=== PATIENT | female | born 2005 | race Caucasian/White ===

== ENCOUNTER 2025-06-11 12:50 | Outpatient (CLI) | payer BC | END 2025-06-11 12:51 | disposition home or self-care (01) | LOC: CSHULT 12:50 | PROVIDERS: ATTEND Internal Medicine | DX: C81.00 Nodular lymphocyte predominant Hodgkin lymphoma, unspecified site (principal) | CPT/HCPCS: 93306; 94010; 94729; 94760 ==

== ENCOUNTER 2025-06-18 05:44 | Day surgery (SDC) | payer BC ==
[2025-06-14 12:02] VITALS: BMI 20.9
[2025-06-18] MEDS ORDERED: Bupivacaine HCl 0.5%/Epinephrine 1:200,000/PF 30 ml Vial ONE (06:21)
[2025-06-18] MEDS ORDERED: Glycopyrrolate 0.2 MG/ML 5 ML SYRINGE ONE (06:36)
[2025-06-18] MEDS ORDERED: PROPOFOL 20 ML ONE (06:37)
[2025-06-18] MEDS ORDERED: Lidocaine 1% PF 5 ML VIAL ONE (06:42)
[2025-06-18] MEDS ORDERED: CEFAZOLIN 2 GM VIAL ONE (06:51)
[2025-06-18] MEDS ORDERED: Ondansetron PF 4 MG/2 ML Vial ONE (07:14)
[2025-06-18] MEDS ORDERED: PHENYLEPHRINE-NS 100 MCG/ML 10 ML SYRINGE ONE (07:22)
== END 2025-06-18 08:45 | disposition home or self-care (01) ==
LOC: CSHSDC 05:44
PROVIDERS: ATTEND Surgery
PROC: 0JHD0WZ Insertion of Totally Implantable Vascular Access Device into Right Upper Arm Subcutaneous Tissue and Fascia, Open Approach (ICD-10-PCS; principal; 2025-06-18)
DX: C81.00 Nodular lymphocyte predominant Hodgkin lymphoma, unspecified site (principal)
CPT/HCPCS: A6258; C1788; J1100; J1642; J2250; J2405; J2704; J3010